=== PATIENT | male | born 1980 | race Caucasian/White ===

== ENCOUNTER → 2024-09-10 | Outpatient (CLI) | payer OTHER ==
[~2024-09-10] MED LIST: ACET325 PO; ALBU90OI INH; ALPR1 PO; Adipex-P37.5 MG PO; CARV25 PO; CARV6.25 PO; CLON1 PO; COLCHICINE0.6 MG PO; CYCL10 PO; DIGO.125 PO; EFFEXOR PO; ENTRESTO 49 MG1 EACH PO; FEXPSEER; FEXPSEER PO; FURO40 PO; IBUP800 PO; LEVO750 PO; LEVSOD100; LEVSOD137 PO; LEVSOD150 PO; LISI5 PO; LISINOPRIL PO; LITH300ER PO; METO10 PO; METO25 PO; NAPR550 PO; Norco 5-325 Ta1 EACH PO; OXYACE5T PO; PHENTERMINE; POTCHL10ER PO; PRAZ2 PO; RXCYCL10 PO; RXIBUP800 PO; RXNAPNA550 PO; SERT100 PO; SERT25 PO; TESTONE CI200 MG/1 M IM; VENL75ER PO; ZOLP5 PO
[2024-09-10 10:15] LABS: BASOPHILS ABSOLUTE AUTO 0.05 K/mm3 (0.00-0.23); BASOPHILS PERCENT AUTO 1 % (0-2); EOSINOPHILS ABSOLUTE AUTO 0.51 K/mm3 (0.00-0.68); EOSINOPHILS PERCENT AUTO 5 % (0-6); Hematocrit 51.4 % (37.0-53.0); Hemoglobin 18.2 g/dL (13.5-17.5); IMMATURE GRAN ABSOLUTE AUTO 0.08 K/mm3 (0.00-0.10); IMMATURE GRAN PERCENT AUTO 1 % (0-1); LYMPHOCYTES ABSOLUTE AUTO 1.26 K/mm3 (0.84-5.20); LYMPHOCYTES PERCENT AUTO 13 % (21-46); MONOCYTES ABSOLUTE AUTO 0.71 K/mm3 (0.16-1.47); MONOCYTES PERCENT AUTO 8 % (4-13); Mean Corpuscular HGB Conc 35.4 g/dL (31.5-36.5); Mean Corpuscular Volume 85 fL (80-100); NEUTROPHILS ABSOLUTE AUTO 6.84 K/mm3 (1.96-9.15); NEUTROPHILS PERCENT AUTO 73 % (41-73); Platelet Count 223 K/mm3 (150-400); RDW Coefficient Variation 12.9 % (11.7-14.2); RDW Standard Deviation 39.6 fL (35.1-46.3); Red Blood Cell Count 6.06 M/mm3 (4.30-5.90); White Blood Cell Count 9.45 K/mm3 (4.00-11.30)
[2024-09-10 10:35] LABS: Albumin, Blood 4.2 g/dL (3.4-5.0); Albumin/Globulin Ratio 1.1 (0.8-1.8); Bilirubin, Total 0.6 mg/dL (0.1-1.0); Bun/Creatinine Ratio 14.3 (12.0-20.0); Calcium, Blood 8.7 mg/dL (8.5-10.1); Creatinine, Blood 1.12 mg/dL (0.60-1.20); Globulin, Blood 3.7 g/dL (2.2-4.0); Potassium, Blood 4.4 mmol/L (3.5-5.5); Thyroid Stimulating Hormone 4.199 uIU/mL (0.360-4.800); Total Protein, Blood 7.9 g/dL (6.4-8.2)
== END ==
LOC: LAB 10:11 → LAB SHORT 10:11
PROVIDERS: Physician Assistant
DX: D75.1 Secondary polycythemia (principal); I50.9 Heart failure, unspecified; M79.10 Myalgia, unspecified site; R73.9 Hyperglycemia, unspecified
CPT/HCPCS: 80053; 83036; 83880; 84443; 84484; 85025; 85060; 85651; 86140